=== PATIENT | male | born 1955 | race Caucasian/White ===

== ENCOUNTER → 2022-01-06 13:29 | Outpatient (BNVA) | payer MEDICARE, SELFPAY | PROVIDERS: Visit Provider Urology | DX: N20.0 Calculus of kidney (principal); N40.0 Benign prostatic hyperplasia without lower urinary tract symptoms; N42.0 Calculus of prostate | CPT/HCPCS: G0463; 74018; 81003; 84153; 99203 ==

== ENCOUNTER 2023-08-18 11:06 | Outpatient (CLI) | payer MEDICARE, SELFPAY ==
--- NOTE | 2023-08-18 11:12 | XR_ITS ---
WS: [id number] Exam: XR shoulder LT min 2V* [id number] Date/Time of Exam: 08/18/2023 11:23 AM Reason For Exam: PAIN IN LEFT SHOULDER No acute fracture or dislocation. Degenerative changes at the glenohumeral joint and the AC joint. Mi ld bone spurring along the inferior margin of the acromion and distal clavicle. Normal soft tissues. IMPRESSION: 1. Degenerative changes as noted above. 2. No fracture or other significant finding.
== END 2023-08-18 11:07 | disposition home or self-care (01) ==
LOC: RAD 11:08
PROVIDERS: Visit Provider Family Medicine
DX: M19.012 Primary osteoarthritis, left shoulder (principal)
CPT/HCPCS: 73030

== ENCOUNTER 2023-09-10 12:23 | Outpatient (CLI) | payer MEDICARE, SELFPAY ==
--- NOTE | 2023-09-10 12:27 | CT_ITS ---
WS: [id number] CT NECK TECHNIQUE: Contrast-enhanced CT of the neck with coronal and sagittal reformatted images. CLINICAL INFORMATION: LOCALIZED SWELLING,MASS, LUMP,NECK COMPARISON: None. DLP: 224.[address] scans at [facility] use at least one of these dose optimization techniques: automated e xposure control; mA and/or kV adjustment per patient size (includes targeted exams where dose is matc hed to clinical indication); or iterative reconstruction. 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 This measures approximately 3.9 x 4.2 x 3.6 cm. This involves the anterior aspect of the pa rotid gland and likely parotid gland origin. This extends to just deep to the skin surface and involv es the LEFT platysma. Extension anteriorly to the submandibular space. This abuts the underlying LEFT submandibular gland. This extends superiorly and abuts the angle of the mandible inferiorly. No evid ence of bony destruction. RIGHT parotid gland is normal. Atrophic submandibular glands. Normal oropharynx. Normal posterior ancelmo opharynx. Tonsillar calcifications. No evidence of supraglottic or glottic mass. Normal subglottic ai rway. Lung bases are well aerated. Mild spondylitic changes cervical spine. Paranasal sinuses are well aerated. Mastoid air cells are well aerated. A few prominent LEFT greater than RIGHT intraparotid lymph nodes. No cervical lymphadenopathy. IMPRESSION: 1. 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 This extends just deep to the skin surface described above. 2. Recommend ENT consultation in further evaluation. 3. Salivary glands are otherwise normal in appearance. 4. No cervical lymphadenopathy.
[2023-09-10 13:17] LABS: Blood Urea Nitrogen 11 mg/dL (8-23); Glomerular Filtration Rate 74.5 mL/min (90-130)
[2023-09-10] MEDS: iohexol 350 mg/mL 500 mL Btl (per mL) IV (13:22)
== END 2023-09-10 12:24 | disposition home or self-care (01) ==
LOC: RAD 12:23
PROVIDERS: Visit Provider Specialist
DX: R22.1 Localized swelling, mass and lump, neck (principal)
CPT/HCPCS: 70491; 82565; 84520; Q9967

== ENCOUNTER → 2023-10-27 13:38 | Outpatient (BNVA) | payer MEDICARE, SELFPAY | PROVIDERS: Visit Provider Internal Medicine Cardiovascular Disease | DX: R94.31 Abnormal electrocardiogram [ECG] [EKG] (principal); R06.09 Other forms of dyspnea; E78.5 Hyperlipidemia, unspecified; R03.0 Elevated blood-pressure reading, without diagnosis of hypertension | CPT/HCPCS: 99204 ==

== ENCOUNTER 2023-11-10 06:53 | Outpatient (CLI) | payer MEDICARE, SELFPAY ==
--- NOTE | 2023-11-10 | ECG_ITS ---
[facility] Test Date: 2023-11-10 Pat Name: Arnulfo Dean Department: Room: Gender: Male Supervisor [employer]: : [id number] Requested By: Sony Davis Order Number: [id number] Zbigniew MD: Sony Davis M.D. Interpretive Statements NAME OF STUDY: EXERCISE SESTAMIBI STRESS TEST INDICATION: Abnormal EKG RESULTS TO NEVIN SCHNEIDER PROCEDURE: The baseline electrocardiogram showed normal sinus rhythm with normal ST-Ts and occasional PVCs. Poor R wave progression. At the baseline, the patient's blood pressure was 162/1 oh mm Hg with a heart rate of 69. The patient exercised for 6 minutes and 10 seconds on a modified Steve protocol. Patient attained a maximum heart rate of 136 beats per minute(88% of the maximum predicted heart rate) with a blood pressure at the peak exercise of 198/115 mm Hg. The EKG at the peak exercise revealed no significant changes. Patient did not have any chest pain or any significant arrhythmis with the exercise Sestamibi was injected 1 minute prior to the peak exercise During the recovery phase, there were no new changes. Blood pressure at the end of the recovery phase was 134/94 mm Hg with a heart rate of 89 per minute. CONCLUSION: 1. No significant EKG changes with the [treadmill exercise 2. No exercise-induced chest pain or cardiac arrhythmia 3. Impaired exercise tolerance, attained a maximum of 7.0 METs 4. Sestamibi/Sestamibi perfusion results pending; see separate report. Electronically Signed On 11-16-2023 18:23:22 CDT by Sony Davis M.D. [email or web address]
[2023-11-10 07:02] VITALS: BMI 31.0
--- NOTE | 2023-11-10 07:13 | NMCV_ITS ---
NM celeste perf SPECT r/s* [id number] Arnulfo Dean Age: 68 Gender: M : 1955 Exam Date: 11/10/2023 07:41 Ordering Phys: Sony Davis MD ([email or web address]) Technologist: MARY Bloom Exam Location: [facility] [place] Indications: CHEST PAIN STRESS TEST Please see separate stress test report in [facility] for full findings IMAGE PROTOCOL Rest/Stress 1 Exercise Day Radiopharmaceutical Dose (mCi) Administration Site Administered by Rest: Tc-99m 10.8 IV MARY Matt Sestamibi Stress:Tc-99m 32.6 IV MARY Matt Sestamiabel Rest: 10-Nov-2023 60 Discovery 630 Stress: 10-Nov-2023 30 Discovery 630 Radiopharmaceutical was injected at 100% maximum heart rate. Images obtained in supine and prone position. SPECT RESULTS Technical Quality: Excellent Raw Data Analysis: Normal Image Corrections: No attenuation or motion correction applied Summed Stress Score: 1 Summed Rest Score: 3 Summed Difference Score: 0 PERFUSION FINDINGS Small area of slightly decreased tracer uptake in the mid inferolateral and apical inferior regions. No significant reversibility was noted in this area FUNCTIONAL RESULTS (calculated via Gated SPECT) Stress Image LV EF (%): 68 Stress EDV (mL):85 TID: 0.8 Stress ESV (mL):27 FUNCTIONAL FINDINGS: Segmental wall motion analysis revealing no gross wall motion abnormalities IMPRESSIONS 1. Myocardial perfusion imaging revealing small areas of slightly decreased persistent tracer uptake in the inferior apical inferior and inferolateral regions suggestive of myocardial scarring versus attrition artifact. 2. Normal LV ejection fraction 68%. 3. LV wall motion analysis revealing no gross wall motion abnormalities. 4. Normal LV volume No similar previous studies are available for comparison Dr Sony Davis MD [facility] (Electronically Signed) Final Date: 10 Nov 2023 13:09 S
[2023-11-10 08:48] VITALS: BP 171/84; PULSE 76
--- NOTE | 2023-11-10 10:00 | USCV_ITS ---
Arnulfo Dean Age: 68 Gender: M : 1955 Exam Date: 11/10/2023 07:22 Ordering Phys: Sony Davis MD ([email or web address]) Technologist: Liza Patino [place] [facility] [place]: Paired with stress test BP: / HR: 60 Rhythm: Sinus Technical Quality: Adequate MEASUREMENTS (Male / Female) Normal Values 2D ECHO LV Diastolic Diameter PLAX 5.1 cm 4.2 - 5.9 / 3.9 - 5.3 cm IVS Diastolic Thickness 1.4 cm 0.6 - 1.0 / 0.6 - 0.9 cm IVS Systolic Thickness 1.7 cm LVPW Diastolic Thickness 1.3 cm 0.6 - 1.0 / 0.6 - 0.9 cm LVPW Systolic Thickness 1.7 cm LVOT Diameter 2.1 cm LV Ejection Fraction 2D Teich 56.0 % LV Ejection Fraction MOD 2C 59.5 % LV Ejection Fraction 2C AL 61.7 % LA Diameter 3.4 cm RA Systolic Volume 4C AL 36.7 ml RA Systolic Volume 4C MOD 35.0 ml LA Sys Volume AL 44.1 cm cubed LA Sys Volume Index AL 19.0 cm cubed/m squared Aorta at Sinotubular Diameter 3.5 cm IVC Diameter 1.8 cm M-MODE LA Ao Ratio MM 1.0 AV Cusp Separation MM 2.3 cm DOPPLER AV Peak Velocity 107.0 cm/s LVOT Peak Velocity 77.0 cm/s AV Area Cont Eq vti 3.0 cm squared AV Area Cont Eq pk 2.6 cm squared MV Area PHT 3.0 cm squared Mitral E to A Ratio 0.8 TR Peak Velocity 117.5 cm/s TR Peak Gradient 5.5 mmHg TR Mean Velocity 89.0 cm/s TR Mean Gradient 3.5 mmHg TR Velocity Time Integral 29.0 cm RV Ejection Time 0.3 s FINDINGS Left Ventricle Normal left ventricular size and systolic function, EF 59%. Mild hypokinesia of the basal inferolateral region.Grade I/IV diastolic dysfunction (abnormal relaxation filling pattern), normal to mildly elevated filling pressures. Right Ventricle The right ventricle is normal in size and function. Right Atrium The right atrium is normal in size. Left Atrium The left atrium is normal in size. Mitral Valve No gross abnormalities noted Aortic Valve No gross abnormalities noted Tricuspid Valve No gross abnormalities noted Pulmonic Valve Pulmonic valve not well visualized. Pericardium Normal pericardium without effusion. Aorta Normal ascending aorta dimension. IVC The inferior vena cava appears normal. CONCLUSIONS Normal left ventricular size and systolic function, EF 59%. Mild hypokinesia of the basal inferolateral region.Grade I/IV diastolic dysfunction (abnormal relaxation filling pattern), normal to mildly elevated filling pressures. Normal cardiac chamber sizes. No significant stenotic or regurgitant lesions. There is no pericardial effusion. There are no intracardiac masses. No similar previous studies are available for comparison Dr Sony Davis MD [facility] (Electronically Signed) Final Date: 13 Nov 2023 08:46 S
== END 2023-11-10 06:54 | disposition home or self-care (01) ==
LOC: CDL 06:53
PROVIDERS: PCP Family Medicine; Visit Provider Internal Medicine Cardiovascular Disease
DX: R06.09 Other forms of dyspnea (principal); R94.39 Abnormal result of other cardiovascular function study; I50.30 Unspecified diastolic (congestive) heart failure
CPT/HCPCS: 36415; 78452; 93017; 93306; A9500

== ENCOUNTER → 2023-12-01 09:59 | Outpatient (BNVA) | payer MEDICARE, SELFPAY | PROVIDERS: PCP Family Medicine; Visit Provider Internal Medicine Cardiovascular Disease | DX: R06.09 Other forms of dyspnea (principal); E78.5 Hyperlipidemia, unspecified; R03.0 Elevated blood-pressure reading, without diagnosis of hypertension; R94.31 Abnormal electrocardiogram [ECG] [EKG]; F17.220 Nicotine dependence, chewing tobacco, uncomplicated | CPT/HCPCS: 99214 ==